=== PATIENT | male | born 1995 | race Caucasian/White ===

== ENCOUNTER 2023-07-20 20:38 | Emergency (ER) | payer SELFPAY ==
[2023-07-20 20:41] VITALS: BP 170/100; PULSE 114; RESP 20; TEMP 37; O2SAT 100
--- NOTE | 2023-07-20 20:51 | ED.GENADULT ---
HPI - General Adult General Chief complaint: Unspecified Stated complaint: choking on steak Time Seen by Provider: 07/20/23 20:44 History of Present Illness HPI narrative: A patient 27-year-old gentleman who presents emergency department with chief complaint of esophageal impaction. Patient reports that he was eating steak took a large bite felt as though the piece of steak got stuck in his esophagus. The patient reports he was unable to swallow and reports that he is still having difficulty controlling his oral secretions. The patient denies shortness of breath did report that he did briefly choke but his friends helped him at that point. Patient denies shortness of breath but does feel as though the food is still stuck in his esophagus. Patient reports no prior episodes of this Related Data Allergies Allergy/AdvReac Type Severity Reaction Status Date / Time No Known Allergies Allergy Verified 07/20/23 20:55 Review of Systems Review of Systems: A 10 system review of systems was completed on the patient and is negative except for what is stated in the HPI. Nursing and ancillary documentation was reviewed. Exam Narrative: GENERAL: Well-appearing, well-nourished, and in no acute distress. HEAD: Normocephalic, atraumatic. EYES: PERRLA and EOMI. ENT: Nares clear, no rhinorrhea or epistaxis. Mucous membranes moist. NECK: Supple. CHEST: Clear to auscultation. No respiratory distress. HEART: Regular rate and rhythm. No murmur heard. Normal peripheral pulses. ABDOMEN: Soft, nontender, nondistended, normal active bowel sounds. EXTREMITIES: Normal range of motion. No edema. SKIN: Warm, dry, no rash. NEURO: No focal deficits. Alert and oriented x3. PSYCH: Normal mood and affect. Course Vital Signs Vital signs: Vital Signs Temperature 37.0 C 07/20/23 20:41 Pulse Rate 114 H 07/20/23 20:41 Respiratory Rate 20 07/20/23 20:41 Blood Pressure 170/100 H 07/20/23 20:41 Pulse Oximetry 100 07/20/23 20:41 Oxygen Delivery Room Air 07/20/23 20:41 Temperature 37.0 C 07/20/23 20:41 Pulse Rate 114 H 07/20/23 20:41 Respiratory Rate 16 07/20/23 21:09 Blood Pressure 170/100 H 07/20/23 20:41 Pulse Oximetry 100 07/20/23 21:09 Oxygen Delivery Room Air 07/20/23 20:41 Medical Decision Making MDM Narrative Medical decision making narrative: differential diagnosis includes esophageal food impaction attempts were made to treat the impaction with medications the patient was given sublingual nitro and glucagon without relief of the impaction. The case was discussed with GI who will take patient to the endoscopy suite while waiting to go to the endoscopy suite the patient had an episode of emesis and managed to clear the obstruction. The patient is now able tolerate p.o. Vital Signs Vital Signs: Vital Signs Temperature 37.0 C 07/20/23 20:41 Pulse Rate 114 H 07/20/23 20:41 Respiratory Rate 20 07/20/23 20:41 Blood Pressure 170/100 H 07/20/23 20:41 Pulse Oximetry 100 07/20/23 20:41 Oxygen Delivery Room Air 07/20/23 20:41 Temperature 37.0 C 07/20/23 20:41 Pulse Rate 114 H 07/20/23 20:41 Respiratory Rate 16 07/20/23 21:09 Blood Pressure 170/100 H 07/20/23 20:41 Pulse Oximetry 100 07/20/23 21:09 Oxygen Delivery Room Air 07/20/23 20:41 Discharge Plan Discharge Clinical Impression: Esophagus, foreign body Qualifiers: Encounter type: initial encounter Qualified Code(s): T18.108A - Unspecified foreign body in esophagus causing other injury, initial encounter Patient Disposition: Home, Self-Care Condition: Stable Instructions: Antibiotic Form, Esophageal Foreign Body (ED), Food Impaction (ED) Prescriptions: New pantoprazole [Protonix] 40 mg tablet,delayed release (DR/EC) 40 mg PO HS 28 Days Qty: 28 0RF Follow-up/Referrals: Pinky Gonzales DO [Physician] - PHYSICIAN,NURSE LDR [Primary Care Provider] - [place]
[2023-07-20] MEDS: GLUCAGON FOR INJ 1 MG VIAL IV PUSH (21:03)
[2023-07-20] MEDS: SODIUM CHLORIDE 0.9% IV 1,000 ML 999 ML IV CONT (21:05)
[2023-07-20] MEDS: NITROGLYCERIN SL 0.4 MG TABLET SUBLINGUAL (21:07)
[2023-07-20 21:09] VITALS: RESP 16; O2SAT 100
== END 2023-07-20 22:27 | disposition home or self-care (01) ==
PROVIDERS: Emergency Provider Emergency Medicine
DX: T18.128A Food in esophagus causing other injury, initial encounter (principal); W44.F3XA Food entering into or through a natural orifice, initial encounter
CPT/HCPCS: 96361; 96374; 99284; A9270; J1610; J7030